=== PATIENT | male | born 1950 | race Caucasian/White ===

== ENCOUNTER → 2021-11-06 11:16 | Outpatient (BNVA) | payer MEDICARE, SELFPAY | PROVIDERS: Family Provider Family Medicine; PCP Family Medicine; Referring Provider Nurse Practitioner Primary Care; Visit Provider Surgery | DX: Z12.11 Encounter for screening for malignant neoplasm of colon (principal) | CPT/HCPCS: 99024 ==

== ENCOUNTER 2022-01-01 08:35 | Day surgery (SDC) | payer MEDICARE, SELFPAY ==
[2021-12-31 14:07] VITALS: BMI 30.4
[2022-01-01] MEDS: sodium chloride 0.9% 1,000 ML 30 ML IV (09:46)
[2022-01-01 09:47] VITALS: BP 139/74; PULSE 69; RESP 18; TEMP 35.8; O2SAT 93
--- NOTE | 2022-01-01 09:49 | P.HP_ITS ---
Same Day Surgery H&P Indication for Procedure/HPI DATE OF PROCEDURE: January 01, 2022 CHIEF COMPLAINT/INDICATIONFOR SURGICAL PROCEDURE: Screening colonoscopy PREOP DIAGNOSIS: Screening colonoscopy PLANNED PROCEDURE: Operation Date: 01/01/22 10:30 Proposed Procedures p colonoscopy 77679/z12.11(Not Applicable) - Semaj Goldberg MD Mr. Riojas is a pleasant 72 years old gentleman never had a colonoscopy for screening purposes before. Denies history of colon cancer or nonintentional weight loss. ROS All systems have been reviewed negative except as for the above or per problem list. Medications/Allergies* Home Medications Medication Instructions Recorded Confirmed Type aspirin 81 mg tablet,delayed 81 mg PO DAILY 12/31/21 01/01/22 History release glipizide 2.5 mg tablet, extended 2.5 mg PO DAILY 12/31/21 01/01/22 History release 24 hr levothyroxine 25 mcg tablet 25 mcg PO DAILY 12/31/21 01/01/22 History lisinopril 10 mg tablet 10 mg PO DAILY 12/31/21 01/01/22 History lovastatin 20 mg tablet 20 mg PO DAILY 12/31/21 01/01/22 History Allergies/Adverse Reactions Allergy/AdvReac Type Severity Reaction Status Date / Time No Known Allergies Allergy Verified 01/01/22 09:54 Current Medications: Generic Name Dose Route Start Last Admin Trade Name Freq PRN Reason Stop Dose Admin Sodium Chloride 1,000 mls @ 30 mls/hr 01/01/22 09:45 01/01/22 09:46 Sodium Chloride 0.9% IV 01/02/22 09:44 30 mls/hr .Q24H [facility] Administration Pertinent Exam Findings alert, oriented x 3, regular rate & rhythm and procedure specific exam findings Recommendations Surgery/Procedure today (Colonoscopy with possible biopsy) Other Plans: Plan of care; After thorough history and physical examination and reviewing the chart, plan to perform screening colonoscopy. I discussed with the patient in details the risks,benefits,alternatives and indications.The risk of aspiration, bleeding, soft tissue injury, perforation of the colon and other potential concomitant complications were explained to the patient in details,also the potential need for Laproscoy/Laparotomy to repair any related complications including but not limited to colectomy and or Closotomy.The patient understood this well and did agree to proceed. Rationale was carefully and clearly discussed with the patient.Appropriate informed consent have been reviewed and signed All questions have been answered and all concerns have been addressed to patient's satisfaction. 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
--- NOTE | 2022-01-01 09:54 | P.ANESASSM_ITS ---
Pre-Anesthetic Assessment Height/Weight: Height 1.83 m Weight 101.605 kg Temp Pulse Resp BP Pulse Ox 96.5 F L 69 18 139/74 93 01/01/22 09:47 01/01/22 09:47 01/01/22 09:47 01/01/22 09:47 01/01/22 09:47 Preop Diagnosis: Screening colonoscopy Operation Date: 01/01/22 10:30 Proposed Procedures p colonoscopy 41188/z12.11(Not Applicable) - Semaj Goldberg MD Familial anesthetic complications: none Last intake: Intake Last Liquid Date 12/31/21 Last Liquid Time 22:00 Last Solid Date 12/31/21 Last Solid Time 08:00 Social Tobacco (smokeless tobacco) and No tobacco Exam alert and oriented x 3 Airway Submandibular: within normal limits Cervical ROM: within normal limits Mallampati: Class I Dentition: false Pulmonary None reported CV/HEM Hypertension None reported Hepatic None reported GI None reported Metabolic Diabetes Mellitus, Hyperlipidemia and Thyroid Disease [facility] None reported Neuropsych None reported Anesthetic Plan ASA status: 3 Anesthesia: MAC Medications/Allergies Home Medications Medication Instructions Recorded Confirmed Last Taken Type aspirin 81 mg tablet,delayed 81 mg PO DAILY 12/31/21 01/01/22 12/30/21 History release glipizide 2.5 mg tablet, extended 2.5 mg PO DAILY 12/31/21 01/01/22 12/30/21 History release 24 hr levothyroxine 25 mcg tablet 25 mcg PO DAILY 12/31/21 01/01/22 01/01/22 History lisinopril 10 mg tablet 10 mg PO DAILY 12/31/21 01/01/22 01/01/22 History lovastatin 20 mg tablet 20 mg PO DAILY 12/31/21 01/01/22 12/31/21 History Allergies Allergy/AdvReac Type Severity Reaction Status Date / Time No Known Allergies Allergy Verified 01/01/22 09:54 Current Medications Generic Name Dose Route Start Last Admin Trade Name Freq PRN Reason Stop Dose Admin Sodium Chloride 1,000 mls @ 30 mls/hr 01/01/22 09:45 01/01/22 09:46 Sodium Chloride 0.9% IV 01/02/22 09:44 30 mls/hr .Q24H [facility] Administration Data Anesthesia Cardiac Studies: No Data to Display
[2022-01-01 11:12] VITALS: BP 83/53; PULSE 57; RESP 14; TEMP 36.1; O2SAT 92
[2022-01-01 11:30] VITALS: BP 95/48; PULSE 70; RESP 16; O2SAT 95
--- NOTE | 2022-01-01 14:47 | ANE.PACU2 ---
Inpatient post-anesthesia follow up: Airway intact: Yes Vital signs: Temperature 97 F Pulse Rate 70 Respiratory Rate 16 Blood Pressure 95/48 Pulse Oximetry 95 Oxygen Delivery Me thod Room Air Oxygen Flow Rate Fraction of Inspir ed Oxygen Hydration adequate: Yes Nausea and vomiting: No Pain level: 1 Mental status: Baseline
== END 2022-01-01 11:40 | disposition home or self-care (01) ==
PROVIDERS: PCP Nurse Practitioner Primary Care; Visit Provider Surgery
PROC: 0DJD8ZZ Inspection of Lower Intestinal Tract, Via Natural or Artificial Opening Endoscopic (ICD-10-PCS; CPT 45378; principal; 2022-01-01 10:30)
DX: Z12.11 Encounter for screening for malignant neoplasm of colon (principal); Z79.82 Long term (current) use of aspirin; I10 Essential (primary) hypertension; E11.9 Type 2 diabetes mellitus without complications; E78.5 Hyperlipidemia, unspecified; K57.30 Diverticulosis of large intestine without perforation or abscess without bleeding; D12.3 Benign neoplasm of transverse colon
CPT/HCPCS: 45385; 88305; J2704; J7030

== ENCOUNTER → 2022-01-28 11:11 | Outpatient (BNVA) | payer MEDICARE, SELFPAY | PROVIDERS: PCP Nurse Practitioner Primary Care; Visit Provider Surgery | DX: Z09 Encounter for follow-up examination after completed treatment for conditions other than malignant neoplasm (principal); K57.31 Diverticulosis of large intestine without perforation or abscess with bleeding; K63.5 Polyp of colon | CPT/HCPCS: 99213 ==